=== PATIENT | female | born 1990 | race Caucasian/White ===

== ENCOUNTER 2019-05-08 21:18 | Inpatient (IN) | payer MEDICAID, OTHER, SELFPAY ==
[~2019-05-08] VITALS: Ht 157.5 cm; Wt 56.5 kg
[2019-05-08 21:50] LABS: HEMATOCRIT 36.6 % (36.0-47.0); HEMOGLOBIN 13.1 g/dl (12.0-15.5); MEAN CORPUSCULAR HEMOGLOBIN 32.6 pg (27.0-33.0); MEAN CORPUSCULAR HGB CONC 35.8 g/dl (32.0-36.5); PLATELET COUNT, AUTOMATED 367 10^3/uL (150-450); RED BLOOD COUNT 4.02 10^6/uL (4.00-5.40); WHITE BLOOD COUNT 14.7 10^3/uL (4.0-10.0)
[2019-05-08] MEDS ORDERED: XANA0.25 PO (21:54)
[2019-05-08] MEDS ORDERED: ADDE20CA3 PO (21:54)
[2019-05-08 22:18] LABS: HCG, SERUM QUALITATIVE POSITIVE (NEGATIVE)
[2019-05-08 22:20] LABS: ACETAMINOPHEN LEVEL < 2.0 UG/ML (10.0-30.0); ALBUMIN 3.8 GM/DL (3.2-5.2); ALT/SGPT 17 U/L (12-78); BILIRUBIN,DIRECT < 0.1 MG/DL (0.0-0.2); BILIRUBIN,TOTAL 0.3 MG/DL (0.2-1.0); BLOOD UREA NITROGEN 13 MG/DL (7-18); CALCIUM LEVEL 8.9 MG/DL (8.5-10.1); CARBON DIOXIDE LEVEL 25 MEQ/L (21-32); CHLORIDE LEVEL 109 MEQ/L (98-107); CREATININE FOR GFR 0.87 MG/DL (0.55-1.30); ETHYL ALCOHOL (ETHANOL) < 0.003 % (0.000-0.010); GLOMERULAR FILTRATION RATE > 60.0 (>60); GLUCOSE, FASTING 115 MG/DL (70-100); POTASSIUM SERUM 3.7 MEQ/L (3.5-5.1); SALICYLATE LEVEL 2.3 MG/DL (5.0-30.0); SODIUM LEVEL 142 MEQ/L (136-145); TOTAL PROTEIN 7.2 GM/DL (6.4-8.2)
[2019-05-08 23:12] LABS: AMPHETAMINES LEVEL URINE POSITIVE (NEGATIVE); BARBITURATES URINE NEGATIVE (NEGATIVE); BENZODIAZEPINES URINE POSITIVE (NEGATIVE); CANNABINOIDS URINE POSITIVE (NEGATIVE); COCAINE METABOLITE URINE NEGATIVE (NEGATIVE); METHADONE URINE NEGATIVE (NEGATIVE); OPIATES URINE NEGATIVE (NEGATIVE); PHENCYCLIDINE URINE NEGATIVE (NEGATIVE)
[2019-05-08 23:34] LABS: HCG, SERUM QUANTITATIVE 50 MIU/ML
[2019-05-09] MEDS ORDERED: ALPRAZolam 0.25 MG TAB PO ONE (09:15)
[2019-05-09] MEDS: AMPHETAMINE/DEXTROAMPHETAMINE 5 MG *ER* CAPSULE (ADDERALL XR) PO SCH (09:32)
--- NOTE | 2019-05-09 10:49 | REP ---
PELVIC ULTRASOUND: Real-time sonographic evaluation of the pelvis performed utilizing transabdominal and endovaginal technique. The uterus measures 8.6 x 4.0 x 4.7 cm. Endometrial thickness is 9 mm. No gestational sac is seen in the uterus. The right ovary measures 3.8 x 2.0 x 3 cm and contains a complex cystic structure 1.6 cm in maximum diameter. Left ovary measures 3.8 x 1.9 x 3.6 cm and contains a 2 cm complex cystic structure. There is no adnexal mass or free fluid. There is no torsion, RI of each ovary is 0.53. Differential diagnosis would include very early intrauterine , missed or ectopic . Suggest correlation with serial quantitative beta hCG values. Electronically Signed by Aristides Ward MD 05/10/2019 01:01 P
[2019-05-09] MEDS ORDERED: MULTCAP PO (12:51)
[2019-05-09] MEDS ORDERED: MOM 30ML SUSPENSION UDC PO PRN (16:30)
[2019-05-09] MEDS ORDERED: ACETAMINOPHEN TAB 650MG DOSE (2X325MG) PO PRN (16:30)
[2019-05-09] MEDS ORDERED: MAALOX 30 ML SUSP *UDC PO PRN (16:30)
[2019-05-09] MEDS ORDERED: traZODone 50 MG TAB PO PRN (16:30)
[2019-05-09 17:10] VITALS: BP 102/69
[2019-05-10 07:02] VITALS: BP 99/53
--- NOTE | 2019-05-10 07:42 | HPEPDOC ---
General Date of Admission May 09, 2019 at 16:27 Date of Service: May 10, 2019 Attending Physician: JOSE G LANDIN MD Chief Complaint The patient is a 28-year-old female admitted with a reason for visit of Unspecified Depressive Do. History of Present Illness Patient is a 28-year-old female, brought to the hospital after she was found text in her 12-year-old daughter saying she was done and family will appreciate her better when she was gone. Patient was later found in an attic with a noose made to hang herself. She was brought in by police. On initial assessment, white blood count was 14.7, qualitative hCG was positive, quantitative was 50. Ultrasonography of the uterus did not show a sac. Patient was unable to state the date of her last period On assessment, patient denies any symptoms of chest pain, shortness of breath, weakness, nausea, abdominal pain, vomiting, constipation or diarrhea. Home Medications Scheduled Multivitamin (Multivitamins) 1 Each Capsule, 1 CAP PO DAILY, (Reported) Allergies Coded Allergies: No Known Allergies (Verified , 01/29/07) Past Medical History Medical History Anxiety PTSD ADHD Surgical History Denies any surgical history Social History * Smoker: current smoker, less than 1 pack/day Alcohol: rarely Drugs: marijuana (urine drug screen positive for amphetamine, THC, benzodiazepine. Patient states she takes benzos for her nerves and takes Adderall for ADHD) Urine drug screen positive for amphetamine, THC, benzodiazepines. A-FIB/CHADSVASC A-FIB History Current/History of A-Fib/PAF?: No Current PO Anticoag Therapy: No Review of Systems Other systems A 10 point pertinent review of systems was completed, negative except as stated in the history of presenting illness. Physical Examination Other physical findings GENERAL: NAD SKIN : Warm, dry intact HEENT: Atraumatic, normocephalic, PERRL, moist mucous membrane CARDIOVASCULAR: Regular rate and rhythm, S1S2, no JVD, no edema, distal pulses + and palpable RESP: CTAB, no accessory muscle use noted ABDOMEN: BS+ non distended non tender MS: no joint deformities NEURO: Alert and oriented x 3, CN2-12 grossly intact PSYCH: no anxiety or agitation Vital Signs Vital Signs Date Time Temp Pulse Resp B/P (MAP) Pulse Ox O2 Delivery O2 Flow Rate FiO2 05/10/19 07:02 98.2 77 12 99/53 (68) 05/09/19 17:10 98 05/09/19 16:55 Room Air Assessment/Plan Suicidal attempt Polysubstance abuse with THC Positive hCG Plan Patient has no underlying medical comorbidities requiring evaluation and manage ment Management of acute depression with suicidal attempt by primary team Please reconsult medical team as needed Plan / VTE VTE Prophylaxis Ordered?: No VTE Exclusion Mechanical Proph: Low Risk for VTE LISETTE GODINEZ May 10, 2019 07:42
[2019-05-10] MEDS ORDERED: LORazepam 2 MG TAB PO PRN (10:00)
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
[2019-05-10 18:13] VITALS: BP 114/67
[2019-05-11 06:53] VITALS: BP 108/63
[2019-05-11] MEDS: AMPHETAMINE/DEXTROAMPHETAMINE 5 MG *ER* CAPSULE (ADDERALL XR) PO SCH (08:50)
[2019-05-11] MEDS ORDERED: METOCLOPRAMIDE 5 MG TAB PO PRN (09:45)
[2019-05-11] MEDS ORDERED: METOCLOPRAMIDE 5 MG TAB PO ONE (10:00)
[2019-05-11] MEDS ORDERED: PILL CUTTER 1 EACH XX PRN (10:00)
[2019-05-11] MEDS ORDERED: PRENATAL VITAMINS CHEWABLE TABLET PO ONE (10:00)
--- NOTE | 2019-05-11 10:50 | IPNPDOC ---
Date Seen The patient was seen on 05/11/19. Progress Note SUBJECTIVE: Pt says she has not had her menstrual period for about three weeks. "Yes, I think it's about 3 weeks." Urine HCG (+). 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 She c/o nausea, no vaginal bleed. c/o abd pain diffuse without radiation, dysuria, urgency, or frequency. OBJECTIVE; PHSYCICAL EXAMINATION VITALS: PLS SEE BELOW GENERAL: NAD SKIN : Warm, dry intact HEENT: Atraumatic, normocephalic, PERRL, moist mucous membrane CARDIOVASCULAR: Regular rate and rhythm, S1S2, no JVD, no edema, distal pulses + and palpable RESP: CTAB, no accessory muscle use noted ABDOMEN: BS+ non distended non tender MS: no joint deformities NEURO: Alert and oriented x 3, CN2-12 grossly intact PSYCH: no anxiety or agitation LABORATORY DATA, IMAGING STUDIES, MICROBIOLOGY: PLS SEE BELLBELLO ASSESSMENT AND PLAN: Patient is a 28-year-old female, brought to the hospital after she was found text in her 12-year-old daughter saying she was done and family will appreciate her better when she was gone. Patient was later found in an attic with a noose made to hang herself. She was brought in by police. On initial assessment, white blood count was 14.7, qualitative hCG was positive, quantitative was 50. Ultrasonography of the uterus did not show a sac. Patient was unable to state the date of her last period. (+) URINE HCG -Quantitative hcg unlikely to be a true -will need to recheck quantitative hcg serially - vitamin for now -PRN metoclopramide for nausea Suicide Attempt -per primary team Depression -per primary team. History of Marijuan abuse -cessation counselling provided. VS, I&O, 24H, Fishbone Vital Signs/I&O Vital Signs Date Time Temp Pulse Resp B/P (MAP) Pulse Ox O2 Delivery O2 Flow Rate FiO2 05/11/19 06:53 99.1 77 12 108/63 (78) 05/10/19 10:45 Room Air 05/09/19 17:10 98 CARLINE WORRELL MD May 11, 2019 09:08
[2019-05-11 11:49] VITALS: BP 124/83
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
[2019-05-11 14:44] VITALS: BP 124/83
[2019-05-11 18:00] VITALS: BP 119/63
[2019-05-11 20:24] VITALS: BP 119/63
[2019-05-12 07:00] VITALS: BP 106/59
[2019-05-12] MEDS: PRENATAL VITAMINS CHEWABLE TABLET PO SCH (08:31)
[2019-05-12 13:41] VITALS: BP 118/66
[2019-05-12 16:16] VITALS: BP 118/66
--- NOTE | 2019-05-12 17:34 | MHIPNPDOC ---
[facility] Progress Note Progress Note Inpatient Progress Note Amanda Patton Age 28 Female Date of : 1990 Date of Service: 05/12/2019 History of Present Illness Patient, a 28-year-old woman with a history of PTSD and anxiety, was brought in by police after reportedly texting "goodbye" to her 12-year-old daughter. Subs equently, when the patient's mother attempted to find her, she had found her in the attic with a rope. Patient in the ER reportedly minimized a great amount of her situation, while police confirmed that they had found the alleged rope and witnessed the reported text message. Interval History The patient has met with today in her room. She describes that she's feeling much improved. She's had multiple visitors over the weekend and reports that she is feeling better as she is coping with her various adjustments to being as well as missing her children. She describes that she does not feel depressed and denies any depressive symptoms. She reports her anxiety still present, but she has been noted to engage in the therapeutic milieu. She's not demonstrating any concerning ideation and requests to go home. Review Of Systems As above. Psychotherapy None on this visit. Vital Signs Reviewed. Mental Status Examination General: Well dressed with good hygiene Speech: Spontaneous and fluid Thought processes: Linear and logical MSK: Smooth and coordinated gait, no signs of tremors or involuntary orofacial movements Thought content: Future orientated Abstract reasoning, and computation: Intact Description of associations: Intact Description of abnormal or psychotic thoughts: Denies any suicidal or homicidal ideation. Denies any auditory or visual hallucinations. Does not appear to be responding to internal stimuli. Does not appear to be endorsing any bizarre or paranoid ideation. Judgment: fair Insight: fair Orientation: Alert and orientated 3 Cognition: Grossly normal Recent and remote memory: Intact Attention span and concentration: Intact Fund of knowledge: Adequate Mood: "okay" Affect: Euthymic with a full range Diagnoses Adjustment Disorder Cannabis use disorder, unspecified. Assessment and Plan The patient, a 28 year old woman with a history of cannabis use and PTSD, is seen on the linares again. She has adjusted fairly well and appears much more euthymic and not tearful. She describes that she was overwhelmed by the multiple changes and presentation in the ER as well as finding out that she was . She continues to maintain that she would like to do outpatient therapy and is not sure as to whether she will keep the or not at this time. Plan for discharged tomorrow as euthymic and demonstrating no safety concerns at this time. Disposition Plan for discharge tomorrow. Time Spent 15 minutes [id number]. Monday Vital Signs Vital Signs Date Time Temp Pulse Resp B/P (MAP) Pulse Ox O2 Delivery O2 Flow Rate FiO2 05/12/19 16:16 Room Air 05/12/19 16:16 98.3 90 14 118/66 98 Current Medications Current Medications Acetaminophen (Tylenol Tab) 650 mg Q6HP PRN PO HEADACHE or DISCOMFORT; Start 05/09/19 at 16:30 Al Hydrox/Mg Hydrox/Simethicone (Mylanta) 30 ml Q4HP PRN PO HEARTBURN/INDIGESTION; Start 05/09/19 at 16:30 Amphetamine/ Dextroamphetamine (Adderall Xr) 20 mg QAM PO Last administered on 05/11/19at 08:50; Start 05/10/19 at 09:00; Stop 05/11/19 at 13:53; Status DC Home Med (Med Rec Complete!) ASDIRECTED XX ; Start 05/09/19 at 13:00; Stop 05/09/19 at 13:00; Status DC Lorazepam (Ativan) 2 mg ASDIRECTED PRN PO SEE PROTOCOL; Start 05/10/19 at 10:00 Magnesium Hydroxide (Milk Of Magnesia) 30 ml DAILYPRN PRN PO CONSTIPATION; Start 05/09/19 at 16:30 Metoclopramide HCl (Reglan) 2.5 mg Q6HP PRN PO nausea; Start 05/11/19 at 09:45 Prenat Multivit/ [place]/Iron/Folic Ac ( Vitamins) 1 tab DAILY PO Last administered on 05/12/19at 08:31; Start 05/12/19 at 09:00 Trazodone HCl (Desyrel) 50 mg QHSP PRN PO INSOMNIA; Start 05/09/19 at 16:30 Allergies Coded Allergies: No Known Allergies (Verified , 01/29/07) SAMANTA RODRIGUEZ DO May 12, 2019 17:34
[2019-05-12 18:00] VITALS: BP 114/62
[2019-05-12 19:59] VITALS: BP 118/66
--- NOTE | 2019-05-12 21:51 | IPNPDOC ---
Date Seen The patient was seen on 05/12/19. Progress Note SUBJECTIVE: no c/o nausea today. eating and sleeping well. no vomiting, or abd pain. OBJECTIVE; PHSYCICAL EXAMINATION VITALS: PLS SEE BELOW GENERAL: NAD SKIN : Warm, dry intact HEENT: Atraumatic, normocephalic, PERRL, moist mucous membrane CARDIOVASCULAR: Regular rate and rhythm, S1S2, no JVD, no edema, distal pulses + and palpable RESP: CTAB, no accessory muscle use noted ABDOMEN: BS+ non distended non tender MS: no joint deformities NEURO: Alert and oriented x 3, CN2-12 grossly intact PSYCH: no anxiety or agitation LABORATORY DATA, IMAGING STUDIES, MICROBIOLOGY: PLS SEE BELLOW ASSESSMENT AND PLAN: Patient is a 28-year-old female, brought to the hospital after she was found text in her 12-year-old daughter saying she was done and family will appreciate her better when she was gone. Patient was later found in an attic with a noose made to hang herself. She was brought in by police. On initial assessment, white blood count was 14.7, qualitative hCG was positive, quantitative was 50. Ultrasonography of the uterus did not show a sac. Patient was unable to state the date of her last period. (+) URINE HCG -Quantitative hcg very low unlikely to be a true -will need to recheck quantitative hcg serially - vitamin for now. dc if no exponential increase in serum HCG . -PRN metoclopramide for nausea Suicide Attempt -per primary team Depression -per primary team. History of Marijuan abuse -cessation counselling provided. VS, I&O, 24H, Fishbone Vital Signs/I&O Vital Signs Date Time Temp Pulse Resp B/P (MAP) Pulse Ox O2 Delivery O2 Flow Rate FiO2 05/11/19 20:24 98.6 81 16 119/63 98 05/10/19 10:45 Room Air CARLINE WORRELL MD May 12, 2019 05:45
[2019-05-13 05:44] VITALS: BP 118/66
[2019-05-13 07:01] VITALS: BP 120/64
[2019-05-13 07:02] VITALS: BP 120/64
[2019-05-13] MEDS ORDERED: PRENCHW PO (09:28)
[2019-05-13] MEDS: PRENATAL VITAMINS CHEWABLE TABLET PO SCH (09:47)
--- NOTE | 2019-05-13 15:32 | MHDSPDOC ---
[facility] Discharge Summary Discharge Summary Discharge Amanda Patton Age 28 Female Date of : 1990 Date of Service: 05/13/2019 Diagnoses Adjustment disorder, mild. History of Present Illness Patient, a 28-year-old woman with a history of PTSD and anxiety, was brought in by police after reportedly texting "goodbye" to her 12-year-old daughter. Subsequently, when the patient's mother attempted to find her, she had found her in the attic with a rope. Patient in the ER reportedly minimized a great amount of her situation, while police confirmed that they had found the alleged rope and witnessed the reported text message. Consultants Involved Hospitalist/PCP screening Treatment and Progress On The Unit Patient was admitted to the unit after threatening suicide in a text message to her 12-year-old daughter. She was subsequently found to be when she had arrived on the unit. She reported difficulty with adjustment with a recent of a previous spouse. She described that she was coping as well as she could. Denied any depressive symptoms. She was initially observed to be tearful at times but became much more amenable and more euthymic as visitors came and she adjusted to the situation, suggesting a primary adjustment disorder other than an endogenous depression. Patient maintained safety and demonstrated no adelaida rning ideation during her stay. Patient, due to her presentation related to texting her daughter, was reported to CPS as per policy. Discharge Assessment 28-year-old female with a history of reported PTSD, who is undergoing significant adjustment problems at this time. It's unclear whether PTSD is the primary diagnosis or whether adjustment is the primary issue in her life at this time. She reports not seeking mental health treatment prior, suggesting that PTSD may be mild in comparison. Mental Status Examination General: Well dressed with good hygiene Speech: Spontaneous and fluid Thought processes: Linear and logical MSK: Smooth and coordinated gait, no signs of tremors or involuntary orofacial movements Thought content: Future orientated Abstract reasoning, and computation: Intact Description of associations: Intact Description of abnormal or psychotic thoughts: Denies any suicidal or homicidal ideation. Denies any auditory or visual hallucinations. Does not appear to be responding to internal stimuli. Does not appear to be endorsing any bizarre or paranoid ideation. Judgment: fair Insight: fair Orientation: Alert and orientated 3 Cognition: Grossly normal Recent and remote memory: Intact Attention span and concentration: Intact Fund of knowledge: Adequate Mood: "okay" Affect: Euthymic with a full range Follow Up The social work team worked during the pre-discharge meeting in order to evaluate for further issues of lethality address them fully before discharge. They worked on safety planning with the patient's family members in order to ensure that the patient will have a safe and effective discharge. No medications were started. Discussed with the patient the risks and benefits of with SSRIs. Patient reported being on Xanax and Adderall at home. She was subsequently started by the ER doctor on Adderall. However, after discussion with the patient, she elected to discontinue it as it has a risk of malformation with her unborn child. She was unclear as to whether she would keep the child or not and elected to be off medications and follow up with outpatient therapy. Time Spent The amount of time spent in the coordination of care for this patient was approximately 30 minutes. Monday Vital Signs/I&Os Vital Signs Date Time Temp Pulse Resp B/P (MAP) Pulse Ox O2 Delivery O2 Flow Rate FiO2 05/13/19 07:02 73 120/64 05/13/19 07:01 99.0 12 05/12/19 19:59 98 05/12/19 16:16 Room Air Laboratory Data Labs 24H Laboratory Tests 2 05/13/19 07:24: Human Chorionic Gonadotropin, Quant 790 Medications Scheduled Pnv No.118/Iron Fumarate/FA ( 19 Chewable Tablet) 1 Each Tab.chew, 1 TAB PO DAILY for for 30 Days, #30 Allergies Coded Allergies: No Known Allergies (Verified , 01/29/07) SAMANTA RODRIGUEZ DO May 13, 2019 15:32
== END 2019-05-13 10:32 | disposition home or self-care (01) | DRG 755 ==
LOC: M ED 21:18 → M PSY 05-09 16:27 → M ED 05-09 16:58
PROVIDERS: ADMIT Psychiatry & Neurology Psychiatry; ATTEND Psychiatry & Neurology Addiction Medicine
DX: F43.20 Adjustment disorder, unspecified (principal); R45.851 Suicidal ideations